=== PATIENT | male | born 1990 ===

== ENCOUNTER → 2021-08-23 09:33 | Outpatient (CLI) | payer SELFPAY ==
[2021-08-23 20:02] LABS: Blood Urea Nitrogen 13 mg/dL (9-20); Calcium 9.1 mg/dL (8.4-10.2); Carbon Dioxide 29 mmol/L (22-32); Chloride 105 mmol/L (98-107); Estimated Glomerular Filt Rate > 60 mL/min (>60); Glucose 96 mg/dL (70-100); HEMOLYSIS < 15 (0-50); Potassium 4.5 mmol/L (3.4-5.1); Sodium 139 mmol/L (137-145)
[2021-08-23 20:42] LABS: Erythrocyte Sedimentation Rate 6 MM/HR (0-15)
== END ==
PROVIDERS: PCP Family Medicine; Visit Provider Family Medicine
DX: G44.82 Headache associated with sexual activity (principal)
CPT/HCPCS: 80048; 84443; 85651